=== PATIENT | male | born 2000 | race Caucasian/White ===

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

== ENCOUNTER 2024-09-21 18:36 | Emergency (ER) | payer SELFPAY ==
[2024-09-21] MEDS: Sodium Chloride 0.9% 1,000 ML IV ONE (19:41)
[2024-09-21 19:42] LABS: BASOPHILS PERCENT AUTO 0.3 % (0.0-1.0); EOSINOPHILS ABSOLUTE AUTO 0.1 K/mm3 (0.0-0.4); EOSINOPHILS PERCENT AUTO 0.9 % (0.0-6.0); HEMATOCRIT 45.3 % (42.0-52.0); HEMOGLOBIN 15.5 gm/dl (14.0-18.0); IMMATURE GRAN ABSOLUTE AUTO 0.01 K/mm3 (0.00-0.05); IMMATURE GRAN PERCENT AUTO 0.2 % (0.0-0.4); LYMPHOCYTES ABSOLUTE AUTO 2.1 K/mm3 (1.0-4.8); LYMPHOCYTES PERCENT AUTO 32.2 % (24.0-44.0); MEAN CORPUSCULAR HEMOGLOBIN 27.8 pg (28.0-32.0); MEAN CORPUSCULAR HGB CONC 34.2 g/dl (32.0-36.0); MEAN CORPUSCULAR VOLUME 81.2 fl (83.0-99.0); MEAN PLATELET VOLUME 11.2 fl (9.4-12.4); MONOCYTES ABSOLUTE AUTO 0.4 K/mm3 (0.0-0.8); MONOCYTES PERCENT AUTO 6.6 % (0.0-8.0); NEUTROPHILS ABSOLUTE AUTO 3.8 K/mm3 (1.8-7.7); NEUTROPHILS PERCENT AUTO 59.8 % (41.0-71.0); PLATELET COUNT,PLT 230 K/mm3 (150-400); RED BLOOD CELL COUNT 5.58 M/mm3 (4.52-5.90); WHITE BLOOD CELL COUNT,WBC 6.39 K/mm3 (3.9-11.3)
[2024-09-21] MEDS: Ketorolac 15 MG/ML SDV IVPUSH ONE (19:42)
[2024-09-21] MEDS: Sodium Chloride 0.9% 10 ML Syringe FLUSH PRN (19:42)
[2024-09-21 20:03] LABS: A/G RATIO 1.1 (1-2); ALBUMIN 4.3 g/dl (3.4-5.0); ANION GAP 11.8 (5-15); BILIRUBIN TOTAL 0.5 mg/dL (0.2-1.0); BUN/CREATININE RATIO 13.3 (14-18); CALCIUM 9.2 mg/dL (8.5-10.1); CREATININE 0.9 mg/dL (0.7-1.3); EST CRCL DRUG DOSING (CG) 127.65 mL/min; POTASSIUM,K 3.8 mEq/L (3.5-5.1); PROTEIN TOTAL,TP 8.1 g/dl (6.4-8.2)
[2024-09-21] MEDS: Sodium Chloride 0.9% 10 ML Syringe FLUSH ONE (20:03)
[2024-09-21] MEDS: Iopamidol 612 MG/ML 100 ML Bottle IVPUSH ONE (20:03)
[2024-09-21] MEDS: Iopamidol 612 MG/ML 30 ML SDV IVPUSH ONE (20:03)
== END 2024-09-21 21:17 | disposition home or self-care (01) ==
LOC: JD.ED 18:36
DX: R10.31 Right lower quadrant pain (principal)
CPT/HCPCS: 36415; 74177; 80053; 83690; 85025; 96361; 96374; 99284; J1885; J7030; Q9967